=== PATIENT | male | born 1960 | race Caucasian/White ===

== ENCOUNTER 2020-03-01 00:49 | Outpatient (CLI) | payer OTHER, SELFPAY ==
[2020-03-01 18:38] LABS: SARS-CoV-2 RNA PCR Negative
== END 2020-03-01 00:50 | disposition home or self-care (01) ==
LOC: ANHCOVIDDT 00:49
PROVIDERS: PCP Internal Medicine; Visit Provider Internal Medicine Critical Care Medicine
DX: Z01.818 Encounter for other preprocedural examination (principal); Z20.828 Contact with and (suspected) exposure to other viral communicable diseases
CPT/HCPCS: 87635; C9803; U0003

== ENCOUNTER 2020-06-10 08:11 | Outpatient (NON) | payer OTHER, SELFPAY ==
[2020-06-10 18:45] LABS: SARS-CoV-2 RNA PCR Negative
== END 2020-06-10 08:12 ==
LOC: ANHCOVIDDT 08:12
PROVIDERS: PCP Internal Medicine; Visit Provider Nurse Practitioner
DX: R68.89 Other general symptoms and signs (principal); Z20.828 Contact with and (suspected) exposure to other viral communicable diseases
CPT/HCPCS: 87635; C9803; U0003

== ENCOUNTER 2021-07-23 00:31 | Day surgery (SDC) | payer OTHER, SELFPAY ==
[2021-07-13 10:22] VITALS: BMI 38.4
--- NOTE | 2021-07-22 13:03 | PM.HPGS ---
History of Present Illness History of Present Illness Consent: Risks, benefits, and alternatives have been discussed and questions answered. Patient agrees to proceed with procedure. Chief complaint: neoplasm screening Narrative: Nate Young is a 60 year old male Referred for colon cancer screening. His last colonoscopy was 12 years ago Review of Systems Review of Systems: All systems reviewed & are unremarkable except as noted in HPI and below PMFSH Past Medical History Medical History BPH (benign prostatic hyperplasia) Erectile dysfunction Hypogonadism in male Mixed hyperlipidemia Obstructive sleep apnea CLEMENT on CPAP Family History Family History Father Family history of chronic obstructive pulmonary disease Social History Social History Smoking packs per day: 0.50 Smoking cigarettes per day: 10.0 Years smoked: 15 Smoking pack-years: 7.50 Smoking status: Former smoker Tobacco type: cigarettes Second hand tobacco smoke exposure: Yes Alcohol intake: current Drinks per week: 2 Alcohol use details: social Substance use: never Living arrangements: with family Spiritual care concerns: No Meds Home Medications and Allergies Home Medications Medication Instructions Recorded Confirmed Type testosterone 20.25 mg/1.25 gram 1 pump TOPICAL DAILY #75 gm 06/23/21 07/23/21 Rx (1.62 %) transdermal gel pump Lkristianop,josé,lac,rha-B.lac,tiffanie 1 cap PO DAILY 07/13/21 07/23/21 History [Advanced Probiotic] tamsulosin 0.4 mg PO DAILY 07/13/21 07/23/21 History Allergies Allergy/AdvReac Type Severity Reaction Status Date / Time cefaclor Allergy Mild Hives Verified 07/23/21 06:45 clarithromycin Allergy Mild rash Verified 07/23/21 06:45 Exam Resp: Auscultation: clear to auscultation bilaterally Cardio: Rate: regular rate Rhythm: regular rhythm GI: GI Palp: Yes Soft to palpation and No Tenderness to palpation present (GI) Assessment and Plan Assessment and plan (1) Colon cancer screening: Code(s): Z12.11 - Encounter for screening for malignant neoplasm of colon Status: Acute Assessment and Plan: Colonoscopy with possible biopsy or polypectomy or cautery or injection of substances.
[2021-07-23 06:47] VITALS: BP 145/86; PULSE 90; RESP 16; TEMP 37.1; O2SAT 97; BMI 38.0
[2021-07-23] MEDS: LACTATED RINGERS 1,000 ML 150 ML IV CONT (06:50)
--- NOTE | 2021-07-23 07:32 | P.PNAN_ITS ---
Anes - Initial Pre Proc Eval Procedure: Operation Date: 07/23/21 08:00 Proposed Procedures p Screening Colonoscopy - Damion Spencer MD Date/Time: 07/23/21 07:32 Surgeon: Damion Spencer MD Pre Op Diagnosis: neoplasm screening Patient Data Age: 60 Gender: M Height: 1.75 m Weight: 117 kg Last Vital Signs Temp 98.7 F 07/23/21 06:47 Pulse 90 07/23/21 06:47 Resp 16 07/23/21 06:47 BP 145/86 H 07/23/21 06:47 Pulse Ox 97 07/23/21 06:47 Allergies Allergy/AdvReac Type Severity Reaction Status Date / Time cefaclor Allergy Mild Hives Verified 07/23/21 06:45 clarithromycin Allergy Mild rash Verified 07/23/21 06:45 Home Medications Medication Instructions Recorded Confirmed Type testosterone 20.25 mg/1.25 gram 1 pump TOPICAL DAILY #75 gm 06/23/21 07/23/21 Rx (1.62 %) transdermal gel pump L.acidop,josé,lac,rha-B.lac,tiffanie 1 cap PO DAILY 07/13/21 07/23/21 History [Advanced Probiotic] tamsulosin 0.4 mg PO DAILY 07/13/21 07/23/21 History Patient hx anesthesia problems: none Family hx anesthesia problems: none Results Review: All pre-operative results and documents have been reviewed as part of the pre-operative evaluation. [facility] Past Medical History Medical History BPH (benign prostatic hyperplasia) Erectile dysfunction Hypogonadism in male Mixed hyperlipidemia Obstructive sleep apnea CLEMENT on CPAP Family History Family History Father Family history of chronic obstructive pulmonary disease Social History Social History Smoking packs per day: 0.50 Smoking cigarettes per day: 10.0 Years smoked: 15 Smoking pack-years: 7.50 Smoking status: Former smoker Tobacco type: cigarettes Second hand tobacco smoke exposure: Yes Alcohol intake: current Drinks per week: 2 Alcohol use details: social Substance use: never Living arrangements: with family Spiritual care concerns: No Anes - Eval Final PreProcedure Day of Procedure 07/23/21 07:32 Patient weight: obese Heart: regular rate and rhythm Lungs: clear to auscultation Airway: Mallampati scale class II Neurological: alert and oriented Last oral intake: >/= 8 hours ASA classification: III Emergent: no Anesthetic plan: proceed Anesthesia type and monitoring: general GIVS and standard monitoring Results Review: All pre-operative results and documents have been reviewed as part of the pre-operative evaluation. Informed Consent: The patient's anesthetic plan and its attendant risks and benefits were discussed with the patient/family/POA. Questions were solicited and answers provided to the satisfaction of the patient/family/POA.
[2021-07-23 08:19] VITALS: BP 96/60; PULSE 81; RESP 25; O2SAT 96
[2021-07-23 08:29] VITALS: BP 109/66; PULSE 76; RESP 17; O2SAT 98
[2021-07-23 08:39] VITALS: BP 116/59; PULSE 74; RESP 20; O2SAT 99
== END 2021-07-23 08:40 | disposition home or self-care (01) ==
PROVIDERS: PCP Internal Medicine; Visit Provider Internal Medicine Gastroenterology
PROC: 0DJD8ZZ Inspection of Lower Intestinal Tract, Via Natural or Artificial Opening Endoscopic (ICD-10-PCS; CPT 45378; principal; 2021-07-23 08:00)
DX: Z12.11 Encounter for screening for malignant neoplasm of colon (principal); K57.30 Diverticulosis of large intestine without perforation or abscess without bleeding; E78.2 Mixed hyperlipidemia; G47.33 Obstructive sleep apnea (adult) (pediatric); N40.0 Benign prostatic hyperplasia without lower urinary tract symptoms; Z87.891 Personal history of nicotine dependence; E66.9 Obesity, unspecified; Z68.38 Body mass index [BMI] 38.0-38.9, adult
CPT/HCPCS: 45378; J2704; J7120

== ENCOUNTER 2022-06-29 11:12 | Outpatient (CLI) | payer OTHER, SELFPAY ==
--- NOTE | ~2022-06-29 | XR_ITS ---
XR knee LT 3V DATE: 06/29/2022 11:36 INDICATION: Anterior injury 3 weeks ago. Left knee pain. TECHNIQUE: AP, lateral, sunrise views COMPARISON: None FINDINGS: Mild superior pole patellar enthesopathy at quadriceps tendon insertion site. No fracture or dislocation or joint effusion. No periosteal reaction or bone destruction. No radiopaq ue interarticular loose body or, calcinosis. Joint spaces are relatively well preserved. IMPRESSION: Mild superior pole patellar enthesopathy Reviewed, dictated and finalized at location L. ASE OF INFORMATION SPECIALIST
== END 2022-06-29 11:13 | disposition home or self-care (01) ==
PROVIDERS: PCP Internal Medicine; Visit Provider Nurse Practitioner
DX: M25.562 Pain in left knee (principal)
CPT/HCPCS: 73562

== ENCOUNTER 2022-09-14 09:44 | Emergency (ER) | payer OTHER, SELFPAY ==
[2022-09-14 10:02] VITALS: BP 128/76; PULSE 97; RESP 16; TEMP 36.9; O2SAT 97
--- NOTE | 2022-09-14 10:03 | ED.URI ---
HPI - URI/Sore Throat General Chief Complaint: Upper Respiratory Infection Stated Complaint: sorethroat,bilateral ear discomfort Time Seen by Provider: 09/14/22 10:08 Source: patient Mode of arrival: ambulatory Limitations: no limitations History of Present Illness HPI Narrative: Mr. Levi is a 61-year-old male patient presenting to clinic today with complaints of sore throat, cough, nasal congestion, and bilateral ear pain x3 days. He reports that he has been exposed to his granddaughter who tested positive for strep. He he reports he has felt fevers with temperatures of 100-101 degrees F. Denies any chest pain or shortness of breath. MD elicited complaint: fever, cough, sore throat, nasal congestion and other (Ear pain) Related Data Home Medications Medication Instructions Recorded Confirmed L.acidop,casei,lactis,rham-B.lact,tiffanie 1 cap PO DAILY 07/13/21 09/14/22 625 mg (10 billion cell) capsule (Advanced Probiotic) Allergies Allergy/AdvReac Type Severity Reaction Status Date / Time cefaclor Allergy Severe Hives Verified 09/14/22 10:05 clarithromycin Allergy Severe rash Verified 09/14/22 10:05 Review of Systems Review of Systems: Pertinent positives per HPI. Patient denies any rash, headache, visual changes, dizziness, shortness of breath, chest pain, palpitations, nausea, vomiting, diarrhea, constipation, abdominal pain, or any urinary issues. [facility] Past Medical History Medical History BPH (benign prostatic hyperplasia) Erectile dysfunction Hypogonadism in male Mixed hyperlipidemia Obstructive sleep apnea CLEMENT on CPAP Family History Family History Father Family history of chronic obstructive pulmonary disease Social History Social History Smoking packs per day: 0.50 Smoking cigarettes per day: 10.0 Years smoked: 15 Smoking pack-years: 7.50 Smoking status: Never smoker Tobacco type: cigarettes Second hand tobacco smoke exposure: Yes Alcohol intake: current Drinks per week: 2 Alcohol use details: social Substance use: never Lack of Transportation: No Lack of Food: Never True Current Housing: I Have Housing Concerned About Future Housing: No Difficulty Paying Gas/Electric Bills: No Difficulty Paying for Meds: No Currently Unemployed: No Education: Bachelor's Degree Difficulty w/ Childcare or Family Care: No Living arrangements: with family Spiritual care concerns: No Comments At the time of my signature, I reviewed and agree with the nursing past medical, surgical, social, and family history. There is no relevant family history pertinent to the patient complaint. Exam Narrative: General: Well-developed, well nourished, in no apparent distress Head: Normocephalic, atraumatic Eyes: Pupils equally round and reactive to light bilaterally, EOM intact, sclera and conjunctive clear, no discharge, lids normal Ears: TMs intact and clear, ear canals clear, no drainage, grossly hearing normal. Nose: Nares patent, clear nasal discharge, moderate inflammation, no sinus tenderness. Mouth: Oral pharynx red with bilateral tonsillar swelling without lesions or masses, good dentition, MMM. Neck: Supple, trachea midline, enlargement of anterior cervical nodes, no thyroid masses or goiter palpable. Cardio: Regular rate and rhythm, s1 and s2 normal, no murmur appreciated. Resp: Clear to auscultation bilaterally, no rhonchi, rales, wheezing or rubs Course Course Emergency Course: Portions of this record may have been created with voice recognition software. Level of Care: Express Care Visit Vital Signs Vital signs: Vital Signs Temperature 36.9 C 09/14/22 10:02 Pulse Rate 97 09/14/22 10:02 Respiratory Rate 16 09/14/22 10:02 Blood Pressure 128/76 09/14/22 10:02 Pu
== END 2022-09-14 10:42 | disposition home or self-care (01) ==
PROVIDERS: Emergency Provider Nurse Practitioner Family; PCP Internal Medicine
DX: J06.9 Acute upper respiratory infection, unspecified (principal); H69.93 Unspecified Eustachian tube disorder, bilateral; F17.210 Nicotine dependence, cigarettes, uncomplicated; N40.0 Benign prostatic hyperplasia without lower urinary tract symptoms; E78.2 Mixed hyperlipidemia; G47.33 Obstructive sleep apnea (adult) (pediatric); Z20.822 Contact with and (suspected) exposure to COVID-19
CPT/HCPCS: 87081; 87426; 87880; 99213; C9803; G0463

== ENCOUNTER 2022-09-17 08:38 | Emergency (ER) | payer OTHER, SELFPAY ==
--- NOTE | 2022-09-17 08:45 | ED.URI ---
HPI - URI/Sore Throat General Chief Complaint: Upper Respiratory Infection Stated Complaint: Cough,Sore Throat,Rt Ear Irritation Time Seen by Provider: 09/17/22 09:12 Source: patient and RN notes reviewed Mode of arrival: ambulatory Limitations: no limitations History of Present Illness HPI Narrative: 61-year-old male presents with concern for ongoing cough, night sweats, sore throat. Reports symptoms have been going on for 1 week. Reports he was seen 3 days ago and was given prednisone which he has been taking with no relief. He feels like his symptoms may have gotten worse. He reports he has been taking NyQuil at night. He has not taken any other cough suppressant. MD elicited complaint: cough and sore throat Related Data Home Medications Medication Instructions Recorded Confirmed L.acidop,casei,lactis,rham-B.lact,tiffanie 1 cap PO DAILY 07/13/21 09/17/22 625 mg (10 billion cell) capsule (Advanced Probiotic) Allergies Allergy/AdvReac Type Severity Reaction Status Date / Time cefaclor AdvReac Mild Hives Verified 09/17/22 08:45 clarithromycin AdvReac Mild rash Verified 09/17/22 08:45 Review of Systems Review of Systems: CONSTITUTIONAL: Reports malaise, sweats EYES: Denies visual changes, redness, or discharge. ENT: Reports rhinorrhea, otalgia and sore throat. Denies sinus congestion, pain, pressure CARDIOVASCULAR: Denies chest pain, palpitations, or edema. RESPIRATORY: Reports persistent cough. Denies dyspnea. GASTROINTESTINAL: Denies abdominal pain, nausea, vomiting, diarrhea SKIN: Denies rash or itching. MUSCULOSKELETAL: Denies myalgia. NEUROLOGIC: Denies headache. All systems reviewed & are unremarkable except as noted in HPI and below [facility] Past Medical History Medical History BPH (benign prostatic hyperplasia) Erectile dysfunction Hypogonadism in male Mixed hyperlipidemia Obstructive sleep apnea CLEMENT on CPAP Family History Family History Father Family history of chronic obstructive pulmonary disease Social History Social History Smoking packs per day: 0.50 Smoking cigarettes per day: 10.0 Years smoked: 15 Smoking pack-years: 7.50 Smoking status: Never smoker Tobacco type: cigarettes Second hand tobacco smoke exposure: Yes Alcohol intake: current Drinks per week: 2 Alcohol use details: social Substance use: never Lack of Transportation: No Lack of Food: Never True Current Housing: I Have Housing Concerned About Future Housing: No Difficulty Paying Gas/Electric Bills: No Difficulty Paying for Meds: No Currently Unemployed: No Education: Bachelor's Degree Difficulty w/ Childcare or Family Care: No Living arrangements: with family Spiritual care concerns: No Comments At time of signature, agree with nursing past medical, surgical, social and family history. There is no relevant family history pertinent to the presenting complaint Exam Narrative: GENERAL: Nontoxic appearing and in no acute distress. HEAD: Normocephalic EYES: PERRLA, conjunctivae clear ENT: Nares clear, turbinates edematous and erythematous. Mucous membranes moist. TM pearly almonte with sharp light reflex bilaterally; no tragal tenderness. Oropharynx not erythematous without lesions. Tonsils not enlarged and without exudate, no drooling, no hoarseness, no trismus, uvula midline. NECK: Supple. No lymphadenopathy CHEST: Clear to auscultation, breath sounds equal. No wheezing, rhonchi, rales, or stridor. No respiratory distress, speaks in full sentences. Cough noted HEART: Regular rate and rhythm. No murmur heard. SKIN: Warm, dry, no rash. NEURO: Alert and oriented x3. PSYCH: Normal mood and affect Course Course Emergency Course: Patient is aware of diagnosis, understands and agrees to treatment plan. An
[2022-09-17 08:53] VITALS: BP 151/82; PULSE 85; RESP 20; TEMP 36.7; O2SAT 98
== END 2022-09-17 09:13 | disposition home or self-care (01) ==
PROVIDERS: Emergency Provider Nurse Practitioner; PCP Internal Medicine
DX: J06.9 Acute upper respiratory infection, unspecified (principal); E78.2 Mixed hyperlipidemia; F17.210 Nicotine dependence, cigarettes, uncomplicated
CPT/HCPCS: 99213; G0463

== ENCOUNTER 2024-02-28 13:59 | Outpatient (CLI) | payer OTHER, SELFPAY ==
--- NOTE | ~2024-02-28 | XR_ITS ---
EXAMINATION: XR foot LT min 3V, XR ankle LT min 3V DATE: 02/28/2024 14:20 INDICATION: Lateral left foot and ankle pain post injury TECHNIQUE: 1. Anteroposterior, mortise, additional oblique and lateral view of the left ankle were obtained. 2. Dorsoplantar, two oblique and lateral views of the left foot were obtained. COMPARISON: None. FINDINGS: Alignment of the foot and ankle is normal. No fracture. 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 No ankle joint effusion. Small Achilles calcanea l spurs. The soft tissues are unremarkable. IMPRESSION: 1. No acute osseous abnormality at the left foot or ankle. Reviewed, dictated and finalized at location B. IMPRESSION: 1. No acute osseous abnormality at the left foot or ankle.
== END 2024-02-28 14:00 | disposition home or self-care (01) ==
LOC: ANHIMG 14:06
PROVIDERS: PCP Nurse Practitioner; Visit Provider Nurse Practitioner
DX: M79.672 Pain in left foot (principal); M25.572 Pain in left ankle and joints of left foot
CPT/HCPCS: 73610; 73630

== ENCOUNTER 2024-07-18 08:40 | Outpatient (CLI) | payer OTHER, SELFPAY ==
--- NOTE | ~2024-07-18 | XR_ITS ---
Clinical Indication: Pneumonia PA and lateral views of the chest: Comparison: 08/01/2014 Findings: The lungs are clear, without evidence of focal consolidation or pleural effusion. Cardiome diastinal silhouette is within normal limits. Bones and soft tissues are unremarkable. Impression: Normal chest. Reviewed, dictated and finalized at [facility]. D CERTIFIED MUSIC THERAPIST Impression: Normal chest.
== END 2024-07-18 08:41 | disposition home or self-care (01) ==
LOC: MICIMG 08:41
PROVIDERS: PCP Nurse Practitioner; Visit Provider Nurse Practitioner
DX: J18.9 Pneumonia, unspecified organism (principal)
CPT/HCPCS: 71046

== ENCOUNTER 2024-08-17 09:15 | Outpatient (CLI) | payer OTHER, SELFPAY ==
--- OUTSIDE RECORDS SUMMARY | 2024-08-17 09:42 | XMS_ITS | Clinical Summary ---
Author Organization [facility] Address [address] [place] [address] Care Team Providers Care Recovery Engineer Name Role Phone Sabas Alvarado DO Primary Care Provider [phone] Allergies Active Allergy Reactions Criticality Noted Date Comments Cefaclor Hives 05/25/2021 Medications tamsulosin 0.4 MG Cap Take 0.4 mg by mouth daily. Active Encounters Date Type Department Care Team Description 05/26/2024 8:57 AM BOOKING PRIZER - 05/26/2024 11:40 AM BOOKING PRIZER [facility] Emergency Room [id number] [place] [address] Chavez Portillo MD Back Pain Discharge Disposition: Home or Self Care (Routine Discharge) 05/26/2024 Travel from Last 3 Months Family History Medical History Relation Comments COPD Father Emphysema Father Heart Disease Father Cancer Mother Relation Status Comments Father Mother Social History Tobacco Use Types Packs/Day Years Used Date Smoking Tobacco: Every Day Cigarettes 1 15 Smokeless Tobacco: Never Tobacco Cessation:Ready to Q uit: Not Asked; Counseling Given: Not Answered Alcohol Use Standard Drinks/Week Comments Yes 0 (1 standard drink = 0.6 oz pur e alcohol) Sex and Gender Information Value Date Recorded Sex Assigned at Not on file Legal Sex Male 6:07 PM BOOKING PRIZER Gender Identity Not on file Sexual Orientation Not on file Last Filed Vital Signs Vital Sign Reading Time Taken Comments Blood Pressure 147/102 05/26/2024 11:38 AM BOOKING PRIZER Pulse 84 05/26/2024 11:38 AM BOOKING PRIZER Temperature 36.4 C (97.5 F) 05/26/2024 11:38 AM BOOKING PRIZER Respiratory Rate 16 05/26/2024 11:3 8 AM BOOKING PRIZER Oxygen Saturation 98% 05/26/2024 11: 38 AM BOOKING PRIZER Inhaled Oxygen Concentration - - Weight 123.4 kg (272 lb 0.8 oz) 05/26/2024 9:00 AM BOOKING PRIZER Height 175.3 cm (5' 9 ) 05/26/2024 9:00 AM BOOKING PRIZER Body Mass Index 40.17 05/26/2024 9:00 AM BOOKING PRIZER Plan of Treatment Health Maintenance Due Date Last Done Comments Colorectal Cancer Screening Colonoscopy (10 Years) 1960 Annual Physical 09/22/1962 Pneumococcal Vaccine: Pediatrics (0 to 5 Years) and At-Risk Patients (6 to 64 Years) (1 of 2 - PCV) 09/22/1965 Hepatitis C 09/22/1977 DTaP, Tdap and Td Vaccines ( 1 - Tdap) 09/22/1978 Zoster Vaccines (1 of 2) 09/22/2009 RSV Immunization or 60+ Years (1 - Risk 60-74 years 1-dose series) 2019 COVID-19 Vaccine (3 - 2023-2 5 season) 2024 10/09/2020, 09/11/2020 Influenza Adult (#1) 2024 Meningococcal B Vaccine Aged Out No l onger eligible based on patient's age to complete this topic Meningococcal Vaccine Aged Out No tiffanie lg eligible based on patient's age to complete this topic RSV Immunizations Under 20 Months Aged Out No longer eligible b ased on patient's age to complete this topic Procedures Procedure Name Priority Date/Time Associated Diagnosis Comments CT ABD+PEL W CON STAT 05/26/2024 10:5 0 AM BOOKING PRIZER LIPASE STAT 05/26/2024 9:45 AM BOOKING PRIZER COMPREHENSIVE METABOLIC PANEL STAT 05/26/2024 9:45 AM BOOKING PRIZER CBC W/DIFF AUTOMATED STAT 05/26/2024 9:45 AM BOOKING PRIZER URINALYSIS, AUTO, COMPLETE STAT 05/26/2024 9:08 AM BOOKING PRIZER from Last 3 Months Results * CT ABD+PEL W IV CON ONLY (05/26/2024 10:50 AM BOOKING PRIZER) Anatomical Region Laterality Modality Abdomen Computed Tomogra phy 05/26/2024 11:0 1 AM BOOKING PRIZER Impressions 05/26/2024 11:05 AM BOOKING PRIZER IMPRESSION: 1. No definite acute abnormalities identified in the abdomen or pelvis. 2. Atherosclerosis. 3. Diverticulosis. 4. Please see above for additional chronic, incidental, and nonemergent findings elsewhere. Ordered By: CHAVEZ PORTILLO Interpreted By: Rashawn Bell MD, 05/26/2024 11:01 AM Narrative 05/26/2024 11:05 AM BOOKING PRIZER [facility] [address] [facility] [place] [address] DATE: 05/26/2024 10:39 AM EXAMINATION: CT Abdomen and Pelvis with contrast CLINICAL HISTORY: Right upper quadrant pain. Right flank pain. COMPARISON: None TECHNIQUE: Computed tomography of the abdomen and pelvis was obtained after administration of intravenous contrast, 80mL IOPAMIDOL 76 % IV SOLN, without immediate complication according to routine protocol. A dose lowering technique was used for this procedure, which may include, but is not limited to, dose reduction technique, automated exposure control, the use of iterative reconstruction, and ALARA (As Low As Reasonably Achievable) / Image Gently techniques. FINDINGS: Images of the lower chest reveal no acute findings. Probable focal fatty infiltration near the falciform ligament. Status post cholecystectomy. Pancreas, adrenal glands, spleen, and kidneys are unremarkable. Atherosclerotic calcifications noted along the aorta and its branches. No bulky mesenteric or retroperitoneal lymphadenopathy. Stomach and small bowel loops are nondilated. Normal appendix. No findings of bowel obstruction. No free fluid or free air in the abdomen. Scattered sigmoid diverticula. Sigmoid colon and rectum otherwise underdistended. Bladder unremarkable. No pelvic ascites. Pelvic phleboliths. Pelvic vascular calcifications. No bulky pelvic or inguinal lymphadenopathy. Degenerative changes noted in the spine. Procedure Note Rashawn Bell MD - 05/26/2024 [facility] [address] [place] [address] DATE: 05/26/2024 10:39 AM EXAMINATION: CT Abdomen and Pelvis with contrast CLINICAL HISTORY: Right upper quadrant pain. Right flank pain. COMPARISON: None TECHNIQUE: Computed tomography of the abdomen and pelvis was obtainedafter administration of intravenous contrast, 80mL IOPAMIDOL 76 % IV SOLN,without immediate complication according to routine protocol. A dose lowering technique was used for this procedure, which may include,but is not limited to, dose reduction technique, automated exposurecontrol, the use of iterative reconstruction, and ALARA (As Low AsReasonably Achievable) / Image Gently techniques. FINDINGS: Images of the lower chest reveal no acute findings. Probable focal fatty infiltration near the falciform ligament. Status postcholecystectomy. Pancreas, adrenal glands, spleen, and kidneys areunremarkable. Atherosclerotic calcifications noted along the aorta and itsbranches. No bulky mesenteric or retroperitoneal lymphadenopathy. Stomach and small bowel loops are nondilated. Normal appendix. No findingsof bowel obstruction. No free fluid or free air in the abdomen. Scattered sigmoid diverticula. Sigmoid colon and rectum otherwiseunderdistended. Bladder unremarkable. No pelvic ascites. Pelvicphleboliths. Pelvic vascular calcifications. No bulky pelvic or inguinallymphadenopathy. Degenerative changes noted in the spine. IMPRESSION: 1. No definite acute abnormalities identified in the abdomen or pelvis. 2. Atherosclerosis. 3. Diverticulosis. 4. Please see above for additional chronic, incidental, and nonemergentfindings elsewhere. Ordered By: CHAVEZ PORTILLO Interpreted By: Rashawn Bell MD, 05/26/2024 11:01 AM us Chavez Portillo MD CT Final R esult * (ABNORMAL) COMPREHENSIVE METABOLIC PANEL (05/26/2024 9:45 AM BOOKING PRIZER) GLUCOSE 143(H) 70 - 99 MG/DL 05/26/2024 10:08 AM BOOKING PRIZER [facility] BUN 14 7 - 18 MG/DL 05/26/2024 10:08 AM BOOKING PRIZER [facility] CREATININE S/P/B 1.35(H) 0.7 - 1.3 MG/DL 05/26/2024 10:08 AM [facility] SODIUM S/P/B 140 136 - 145 MMOL/L 05/26/2024 10:08 AM [facility] POTASSIUM S/P/B 4.4 3.5 - 5.1 MMOL/L 05/26/2024 10:08 AM [facility] CHLORIDE S/P/B 104 100 - 108 MMOL/L 05/26/2024 10:08 AM [facility] CO2 30.7 21 - 32 MMOL/L 05/26/2024 10:08 AM [facility] CALCIUM S/P/B 8.9 8.5 - 10.1 MG/DL 05/26/2024 10:08 AM [facility] BILIRUBIN TOTAL S/P/B 0.6 0.2 - 1.2 MG/DL 05/26/2024 10:08 AM [facility] TOTAL PROTEIN S/P/B 7.3 6.4 - 8.2 G/DL 05/26/2024 10:08 AM [facility] ALBUMIN S/P/B 3.7 3.4 - 5.0 G/DL 05/26/2024 10:08 AM [facility] AST 25 15 - 37 U/L 05/26/2024 10:08 AM [facility] ALT 52 16 - 60 U/L 05/26/2024 10:08 AM [facility] ALKALINE PHOSPHATASE S/P/B 128 50 - 136 U/L 05/26/2024 10:08 AM [facility] ANION GAP 5.3 5 - 15 MMOL/L 05/26/2024 10:08 AM [facility] BUN CREATININE RATIO 10.4 6 - 26 05/26/2024 10:08 AM [facility] A/G RATIO 1.0 1.0 - 2.0 RATIO 05/26/2024 10:08 AM [facility] GFR ESTIMATE 59(L) >90 ML/MIN/1.7 3 M2 05/26/2024 10:08 AM [facility] Comment: NOTE: eGFR is not calculated for patients <18 years of age. This is an estimated GFR calculation using the new CKD EPI creatinine equation without race and so does not require a correction factor for race. This estimated GFR should not be used for calculating drug doses. 05/26/2024 9:45 AM BOOKING PRIZER us Chavez Portillo MD LABORATORY Final R esult [facility] [address] [place] [id number], * (ABNORMAL) CBC W/DIFF AUTOMATED (05/26/2024 9:45 AM BOOKING PRIZER) WBC 10.15 4.4 - 11.0 x10'3/uL 05/26/2024 9:59 AM [facility] RBC 5.07 4.50 - 5.90 x10'6/uL 05/26/2024 9:59 AM [facility] HGB 16.3 14.0 - 17.5 G/DL 05/26/2024 9:59 AM [facility] HCT 46.4 41.5 - 50.4 % 05/26/2024 9:59 AM [facility] MCV 91.5 80.0 - 96.0 FL 05/26/2024 9:59 AM [facility] MCH 32.1(H) 26.5 - 31.4 PG 05/26/2024 9:59 AM [facility] MCHC 35.1(H) 31.9 - 34.8 G/DL 05/26/2024 9:59 AM [facility] RDW 12.0(L) 12.3 - 14.3 % 05/26/2024 9:59 AM [facility] PLT 230 151 - 353 x10'3/uL 05/26/2024 9:59 AM [facility] MPV 9.6(L) 9.7 - 11.9 FL 05/26/2024 9:59 AM [facility] RBC MORPHOLOGY NORMAL 05/26/2024 9:59 AM [facility] PLT MORPH. NORMAL 05/26/2024 9:59 AM [facility] WBC MORPHOLOGY NORMAL 05/26/2024 9:59 AM [facility] LYMPHOCYTES % 14.7(L) 15.8 - 45.0 % 05/26/2024 9:59 AM [facility] NEUTROPHILS % 73.0(H) 42.1 - 71.9 % 05/26/2024 9:59 AM [facility] MONOCYTES % 10.1 5.7 - 12.5 % 05/26/2024 9:59 AM [facility] EOSINOPHILS 0.9 0.0 - 5.6 % 05/26/2024 9:59 AM [facility] BASOPHILS 0.7 0.0 - 1.3 % 05/26/2024 9:59 AM [facility] ABS. NEUTROPHILS 7.41(H) 1.40 - 6.00 x10'3/uL 05/26/2024 9:59 AM [facility] IMMATURE GRANS % 0.6(H) 0.0 - 0.5 % 05/26/2024 9:59 AM BOOKING PRIZER [facility] ABS. LYMPHOCYTES 1.49 0.80 - 4.70 x10'3/uL 05/26/2024 9:59 AM [facility] 05/26/2024 9:45 AM BOOKING PRIZER Chavez Portillo MD LABORATORY Final R esult Performing Organization Address City/[facility]/ZIP Co de Phone Number [facility] [address] [place] [address], [place] [phone] * LIPASE (05/26/2024 9:45 AM BOOKING PRIZER) LIPASE 28 16 - 77 UNITS/L 05/26/2024 10:08 AM [facility] 05/26/2024 9:45 AM BOOKING PRIZER Chavez Portillo MD LABORATORY Final R esult Performing Organization Address [facility]/ZIP Co de Phone Number [facility] [address] [place] [address], [place] [phone] * URINALYSIS, AUTO, COMPLETE (05/26/2024 9:08 AM BOOKING PRIZER) COLOR (U) YELLOW 05/26/2024 9:29 AM [facility] TRANSPARENCY CLEAR 05/26/2024 9:29 AM [facility] SPECIFIC GRAVITY (U) <1.005 1.000 - 1.030 05/26/2024 9:29 AM [facility] U PH 6.0 5.0 - 9.0 05/26/2024 9:29 AM [facility] LEUKOCYTES (U) NEGATIVE NEGATIVE 05/26/2024 9:29 AM [facility] NITRITES NEGATIVE NEGATIVE 05/26/2024 9:29 AM [facility] PROTEIN RANDOM (U) NEGATIVE NEGATIVE 05/26/2024 9:29 AM [facility] GLUCOSE (U) NEGATIVE NEGATIVE 05/26/2024 9:29 AM [facility] KETONES MG/DL (U) NEGATIVE NEGATIVE 05/26/2024 9:29 AM [facility] BILIRUBIN (U) NEGATIVE NEGATIVE 05/26/2024 9:29 AM [facility] BLOOD (U) NEGATIVE NEGATIVE 05/26/2024 9:29 AM [facility] WBC/HPF NONE SEEN 0 - 5 /HPF 05/26/2024 9:29 AM [facility] RBC/HPF NONE SEEN 0 - 5 /HPF 05/26/2024 9:29 AM [facility] EPI/HPF NONE SEEN /HPF 05/26/2024 9:29 AM [facility] URINE SPECIMEN OBTAINED BY CLEAN CATCH PROCEDURE / Unknown 05/26/2024 9:08 AM BOOKING PRIZER Chavez Portillo MD URINE ORDERABLES Final Result Performing Organization Address City/State/[facility] Co de Phone Number [facility] [address] [place] [address], from Last 3 Months Insurance [facility] Care Teams Recovery Engineer Relationship Specialty Start Date End Date Sabas Alvarado DO [address] [address] PCP - General INTERNAL MEDICINE 05/26/24
--- NOTE | 2024-08-17 09:57 | ECG_ITS ---
Test Date: 2024-08-17 10:07:40 Measurements Intervals [place] Rate: 79 P: 12 MN: 167 QRS: 4 QRSD: 96 T: 20 QT: 368 QTc: 424 Interpretive Statements SINUS RHYTHM No previous ECG available for comparison Electronically Signed On 08-17-2024 16:33:48 REVOLVING INVENTORY CLERK by May Marroquin M.D.
== END 2024-08-17 09:16 | disposition home or self-care (01) ==
LOC: ANHCARD 09:17
PROVIDERS: PCP Nurse Practitioner; Visit Provider Nurse Practitioner
DX: R07.9 Chest pain, unspecified (principal)
CPT/HCPCS: 93005

== ENCOUNTER 2024-08-27 09:48 | Outpatient (CLI) | payer OTHER, SELFPAY ==
--- NOTE | 2024-08-27 09:56 | EST_ITS ---
Patient Info Name: Nate Young Age: 63 years : 1960 Gender: Male Ht: 69 in Wt: 275 lbs BSA: 2.52 m2 HR: 88 bpm BP: 165 / 91 mmHg Exam Date: 08/27/2024 10:10 AM Exam Location: Echo Lab Patient Status: Outpatient Admit Date: 08/27/2024 Staff Ordering Physician: Jp De APRN Attending Provider: Jp De APRN Exercise Technologist: sin carbajal Exercise Physician: Rusty Flor DO Exam Type: CA stress test treadmill Study Info Indications R07.9 - Chest pain, unspecified A treadmill exercise stress test was performed. Summary 1. 1. Negative Juan exercise stress test for ischemic ST changes by ECG criteria. 2. 2. Reduced functional capacity, achieving 7 METs of workload. 3. 3. Baseline hypertension with hypertensive response to exercise. 4. 4. Appropriate HR response to exercise. 5. 5. Appropriate HR recovery at 1 minute post exercise. 6. 6. No imaging with stress testing. 7. 7. Patient informed of the above results. Protocol: Juan Stress ECG Details Stage: REST Duration (min): 0 min : 22 sec Speed (mph): 0.0 Grade (%): 0 HR (bpm): 81 SBP (mmHg): --- DBP (mmHg): --- METS: --- Stage: REST Duration (min): 13 min : 12 sec Speed (mph): 0.0 Grade (%): 0 HR (bpm): 91 SBP (mmHg): 165 DBP (mmHg): 91 METS: --- Stage: STAGE 1 Duration (min): 1 min : 0 sec Speed (mph): 1.7 Grade (%): 10 HR (bpm): 112 SBP (mmHg): 165 DBP (mmHg): 91 METS: --- Stage: STAGE 1 Duration (min): 2 min : 0 sec Speed (mph): 1.7 Grade (%): 10 HR (bpm): 120 SBP (mmHg): 165 DBP (mmHg): 91 METS: --- Stage: STAGE 1 Duration (min): 3 min : 0 sec Speed (mph): 1.7 Grade (%): 10 HR (bpm): 125 SBP (mmHg): 200 DBP (mmHg): 92 METS: --- Stage: STAGE 2 Duration (min): 1 min : 0 sec Speed (mph): 2.5 Grade (%): 12 HR (bpm): 134 SBP (mmHg): 200 DBP (mmHg): 92 METS: --- Stage: STAGE 2 Duration (min): 2 min : 0 sec Speed (mph): 2.5 Grade (%): 12 HR (bpm): 136 SBP (mmHg): 211 DBP (mmHg): 87 METS: --- Stage: STAGE 2 Duration (min): 3 min : 0 sec Speed (mph): 2.5 Grade (%): 12 HR (bpm): 142 SBP (mmHg): 211 DBP (mmHg): 87 METS: --- Stage: RECOVERY Duration (min): 0 min : 59 sec Speed (mph): 0.0 Grade (%): 0 HR (bpm): 129 SBP (mmHg): 192 DBP (mmHg): 91 METS: --- Stage: RECOVERY Duration (min): 1 min : 9 sec Speed (mph): 0.0 Grade (%): 0 HR (bpm): 124 SBP (mmHg): 192 DBP (mmHg): 91 METS: --- Rest HR: 91 bpm Peak HR: 142 bpm Rest Sys BP: 165 mmHg Peak Sys BP: 211 mmHg Max Pred HR: 156 bpm % Max Pred HR: 91 % Target HR: 133 bpm Max RPP: 29,962 bpm*mmHg Plummer Score: -2 BP Response: Patient exhibited a hypertensive response with stress Termination Reason: Completed protocol Cardiac Symptoms: Shortness of breath Max ST Seg Deviation: 1.50 mm Total Time: 6 min : 0 sec Rest Valdez BP: 91 mmHg Peak Valdez BP: 87 mmHg Angina Score: None Total METS: 7.1 Resting ECG Sinus rhythm. Stress ECG No ST changes. Arrhythmias None. Report Signatures
--- OUTSIDE RECORDS SUMMARY | 2024-08-27 11:00 | XMS_ITS | Clinical Summary ---
Author Organization [facility] Address [address] [place] [address] Care Team Providers Care Water Jet Operator Name Role Phone Sabas Alvarado DO Primary Care Provider [phone] Allergies Active Allergy Reactions Criticality Noted Date Comments Cefaclor Hives 05/25/2021 Medications tamsulosin 0.4 MG Cap Take 0.4 mg by mouth daily. Active Family History Medical History Relation Comments COPD [...] on file Legal Sex Male 6:07 PM THEOLOGY TEACHER Gender Identity Not on file Sexual Orientation Not on file Last Filed Vital Signs Vital Sign Reading Time Taken Comments Blood Pressure 147/102 05/26/2024 11:38 AM THEOLOGY TEACHER Pulse 84 05/26/2024 11:38 AM THEOLOGY TEACHER Temperature 36.4 C (97.5 F) 05/26/2024 11:38 AM THEOLOGY TEACHER Respiratory Rate 16 05/26/2024 11:3 8 AM THEOLOGY TEACHER Oxygen Saturation 98% 05/26/2024 11: 38 AM THEOLOGY TEACHER Inhaled Oxygen Concentration - - Weight 123.4 kg (272 lb 0.8 oz) 05/26/2024 9:00 AM THEOLOGY TEACHER Height 175.3 cm (5' 9 ) 05/26/2024 9:00 AM THEOLOGY TEACHER Body Mass Index 40.17 05/26/2024 9:00 AM THEOLOGY TEACHER Plan of Treatment Health Maintenance Due Date [...] on patient's age to complete this topic Insurance [employer] Care Teams Water Jet Operator Relationship Specialty Start Date End Date Sabas Alvarado DO [address] [facility] [address] [address] PCP - General INTERNAL MEDICINE 05/26/24
== END 2024-08-27 09:49 | disposition home or self-care (01) ==
PROVIDERS: PCP Nurse Practitioner; Visit Provider Nurse Practitioner
DX: R07.9 Chest pain, unspecified (principal)
CPT/HCPCS: 93017